=== PATIENT | male | born 1980 | race Caucasian/White ===

== ENCOUNTER 2024-07-15 08:01 | Emergency (ER) | payer OTHER, SELFPAY ==
[2024-07-15 08:10] VITALS: BP 148/90; PULSE 82; RESP 16; TEMP 36.7; O2SAT 98; BMI 29.5
--- NOTE | 2024-07-15 08:23 | ED.GENADULT ---
HPI - General Adult General Chief complaint: Wound/Laceration Stated complaint: l arm lac Time Seen by Provider: 07/15/24 08:23 Source: patient Mode of arrival: ambulatory Limitations: no limitations History of Present Illness ED Provider: Halima Perry PA-C HPI narrative: Patient is a 43 year old assigned male at with no reported medical history presenting to the emergency department today with a left forearm laceration. Patient states that he was at work, at [employer], when he cut a box and caught his left forearm. Patient states that he does not know when his last tetanus shot was. Patient denies any dizziness, lightheadedness, abdominal pain, nausea, vomiting, fever, chills, blurry vision, double vision, loss of vision, chest pain, difficulty breathing, shortness of breath, back pain, night sweats, pain with urination, increased urinary frequency, increased urinary urgency, blood in his urine or stool, syncope or a near syncopal episode, bowel incontinence, bladder incontinence, or any other complaints at this time. Location: left and upper extremity Relieving factors: none Exacerbating factors: none Associated symptoms: denies other symptoms Treatments prior to arrival: none Related Data Previous Rx's ?Medication ?Instructions ?Recorded cephalexin 500 mg capsule 500 mg PO Q6H 7 days #28 caps 07/15/24 Allergies Allergy/AdvReac Type Severity Reaction Status Date / Time No Known Allergies Allergy Verified 07/15/24 08:13 Review of Systems Constitutional: Constitutional: Reports no additional constitutional complaints, Denies chills, Denies fever(s) and Denies night sweats Eyes: Eyes: Reports no additional eye complaints, Denies blurry vision, Denies change in vision, Denies diplopia, Denies eye discharge, Denies loss of vision and Denies eye pain ENT: Denies dizziness Cardiovascular: Cardiovascular: Reports no additional cardiovascular complaints, Denies chest pain, Denies lightheadedness, Denies Loss of Consciousness and Denies dyspnea Respiratory: Respiratory: Reports no additional respiratory complaints and Denies dyspnea Gastrointestinal: Gastrointestinal: Reports no additional gastrointestinal complaints, Denies abdominal pain, Denies melena, Denies hematochezia, Denies change in bowel habits and Denies change in stool character Genitourinary: Genitourinary: Reports no additional male genitourinary complaints, Denies hematuria, Denies oliguria, Denies difficulty urinating, Denies dysuria, Denies urinary frequency, Denies urinary hesitancy, Denies urinary incontinence and Denies urinary urgency Musculoskeletal: Musculoskeletal: Reports no additional musculoskeletal complaints, Denies numbness and Denies tingling Comments: left forearm laceration Neurologic: Denies dizziness, Denies loss of vision, Denies numbness and Denies tingling Psychiatric: Psychiatric: Reports no additional psychiatric complaints Endocrine: Endocrine: Reports no additional endocrine complaints Hematologic/Lymphatic: Hematologic/Lymphatic: Reports no additional hematologic/lymphatic complaints Allergic/Immunologic: Allergic/Immunologic: Reports no additional allergic/immunologic complaints PMFSH Past Medical History Attestation statement: The following information was validated with the patient. Source: old records reviewed and nursing notes reviewed Physical Exam ED Vital Signs: Vital Signs - 24 hr 07/15/24 08:10 Temperature 98.0 F Pulse Rate 82 Respiratory Rate 16 Blood Pressure 148/90 H Pulse Oximetry 98 Oxygen Delivery Method Room Air BMI result Body Mass Index 29.5 Const General: cooperative, no acute distress, alert and awake Nutritional Appearance: well nourished Orientation/consciousness: patient oriented x3 Limitations: no limitations HENMT Head: Yes normal to inspection and Yes atraumatic Ears: hearing grossly normal bilaterally and external ears normal General nose exam: Normal external nose present, no nasal discharge noted and no epistaxis Face and sinus: Yes normal facial exam, No abrasion and No laceration Mouth: Normal oral and palatal mucosa present, no drooling and no muffled voice Eyes General: appearance normal, both eyes and all related structures Periorbital: periorbital findings normal Eyelids: Yes eyelids normal Conjunctivae: conjunctivae normal Pupils: Equal, round and reactive pupils present EOM: EOMs intact bilaterally Neck Neck: Yes normal visual inspection, Yes full ROM and Yes no lymphadenopathy Chest Chest palpation & inspection: normal inspection of the chest Resp Effort & Inspection: normal respiratory effort and able to speak in complete sentences GI Inspection: Yes normal to inspection Neuro General: patient oriented x3 and moves all extremities Cranial nerves: Yes Equal, round and reactive pupils present Cognition (Neuro): normal cognition Extrem Other: 5cm laceration present to the left volar forearm - no active bleeding General: Yes full ROM and Yes capillary refill normal Psych Appearance: grossly normal Mental Status: mental status grossly normal Affect: normal affect Attitude: cooperative Thought process: Normal thought process present Thought content: Normal thought content present Insight: Good insight present (Psych) Procedures Laceration left volar forearm: Site: upper extremity Side (If applicable): left Size (cm): 5 Description: linear Depth: simple, single layer Local Anesthetic: lidocaine 1% Amount of anesthesia used (mL): 10 Pre-repair: wound explored, irrigated extensively and deep structures intact Skin layer closed with: nylon Size (cm): 4-0 Number of sutures: 7 Technique: simple, interrupted Medical Decision Making Medical Decision Making MDM Narrative: Patient is a 43 year old assigned female at with no reported medical history presenting to the emergency department today with a left forearm laceration. Patient's physical exam was as noted in the physical exam portion of this note. I explained my physical exam findings to the patient. I answered all questions asked by the patient. Patient's laceration was repaired, per procedure note, without incident. I stressed the importance of the patient taking his medication as directed (either prescribed or as the over the counter packaging recommends). I stressed the importance of the patient following up with his primary care provider. I stressed the importance of the patient returning to the emergency department immediately if his symptoms were to worsen or if he were to develop any dizziness, shortness of breath, difficulty breathing, chest pain, blurry vision, loss of vision, nausea, vomiting, abdominal pain, fever, chills, back pain, or any other complaints. Patient verbalized agreement and understanding with this treatment plan and discharge. 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 Have your sutures (7) removed in 7-10 days. Take your antibiotic as prescribed. Follow up with your primary care provider and given this was a work place injury, you should follow up with [facility]. Return to the emergency department immediately if your symptoms worsen or if you develop any dizziness, shortness of breath, difficulty breathing, chest pain, blurry vision, loss of vision, nausea, vomiting, abdominal pain, fever, chills, back pain, or any other complaints. Prescriptions: New cephalexin 500 mg capsule 500 mg PO Q6H 7 Days Qty: 28 0RF [place] [facility] [place]] (Call to establish and follow up with a primary care provider. If you already have a primary care provider, please follow up with them.) [facility] [Provider Group] (Call to establish and follow up with a primary care provider. If you already have a primary care provider, please follow up with them.) [facility] [Provider Group] (Call to establish and follow up with a primary care provider. If you already have a primary care provider, please follow up with them.) [facility] [Provider Group] (Given this was a work injury, you should follow up with [facility]. ) Stand Alone Forms: Work/School Release
[2024-07-15] MEDS: Diphth,Pertus(ACell),Tet Adult 0.5 ML SYRINGE IM (09:10)
--- NOTE | 2024-07-15 09:13 | PC.NURSE ---
pt medicated per order
--- NOTE | 2024-07-15 09:46 | PC.NURSE ---
lt arm wrapped with nonstick and arian. pt instructed to keep area dry.
[2024-07-15 09:47] VITALS: BP 141/86; PULSE 88; RESP 16; TEMP 36.7; O2SAT 99
== END 2024-07-15 09:48 | disposition home or self-care (01) ==
LOC: HO.ED 09:14
PROVIDERS: Emergency Provider Emergency Medicine
DX: S51.812A Laceration without foreign body of left forearm, initial encounter (principal); M79.632 Pain in left forearm; W26.0XXA Contact with knife, initial encounter; Y93.89 Activity, other specified; Y92.89 Other specified places as the place of occurrence of the external cause; Y99.0 Civilian activity done for income or pay
CPT/HCPCS: 12032; 90471; 90715; 99282; 99284

== ENCOUNTER 2024-07-23 08:45 | Outpatient (AMB) | payer OTHER, SELFPAY ==
--- NOTE | 2024-07-23 09:39 | AM.OFFWIN_ITS ---
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 they were initially placed last saturday. 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 He suffered a left forearm lac. on 07/15 when cutting a box while at work. [place] [facility] and he was started on Cephalexin 7 days, which he is completing today. He states one of the sutures fell out. He reports site has felt fine, without any redness, tenderness, swelling, drainage. TDAP was given in the ED. [facility] Social History Patient Tobacco Use Status: Never used Tobacco Review of Systems Const All systems reviewed & are unremarkable except as noted in HPI and below Physical Exam Const General: cooperative, healthy appearing and no acute distress Nutritional Appearance: average body habitus Resp Effort & Inspection: normal respiratory effort Skin Other: Laceration on left forearm well-approximated with 6 sutures intact. No surrounding redness, warmth, tenderness. No drainage. Extrem General: Yes capillary refill normal and Yes no clubbing, cyanosis or edema Psych Appearance: grossly normal Mental Status: mental status grossly normal Speech and movement: Normal speech and movement present Assessment & Plan Assessment & Plan (1) Visit for suture removal: Code(s): Z48.02 - Encounter for removal of sutures Plan: 6 sutures easily removed from left forearm. Bacitracin ointment applied. Red flag warnings to return to the clinic were reviewed with the patient. Up to date on TDAP. Completing Cephalexin course today. All questions were answered and patient agrees to plan. Coding Level of Care Code Est Pt Level 3 (82475) Diagnoses Visit for suture removal Z48.02
[2024-07-23 09:41] VITALS: BP 130/80; PULSE 68; O2SAT 98; BMI 29.8
== END 2024-07-23 10:01 | disposition home or self-care (01) ==
PROVIDERS: Visit Provider Nurse Practitioner Family
DX: S51.812A Laceration without foreign body of left forearm, initial encounter (principal); Z48.02 Encounter for removal of sutures; Z04.2 Encounter for examination and observation following work accident

== ENCOUNTER → 2024-07-23 08:45 | Outpatient (BNVA) | payer OTHER, SELFPAY | DX: S51.812D Laceration without foreign body of left forearm, subsequent encounter (principal); X58.XXXD Exposure to other specified factors, subsequent encounter | CPT/HCPCS: 99212 ==

== ENCOUNTER 2025-01-07 08:50 | Outpatient (AMB) | payer OTHER, SELFPAY ==
[2025-01-07 08:57] VITALS: BP 130/84; PULSE 92; O2SAT 98; BMI 28.4
--- NOTE | 2025-01-07 08:57 | MHC.PC.OV ---
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 Carpenter at [facility] Last visit: 2020 Last PE: same Specialist: no OBGYN:n/a Past medical history: Anxiety Medications: Family HX: father DM passed, mother lymphoma passed Problem: Reports he stopped taking the zoloft around 2020 reports that he is still a little anxious but it is mostly work related Reports that he is a over thinker reports that he came of he zoloft because he felt like he lost the abillity to care about things that he should care about while on this medication reports that he was on celexa when he was younger and had a lot of anxiety reports that he does feel like he did not get over his parents passing discussed with patient that he should probably speak to a therapist Reports that his lost both her patient as well, and she has been helping him cope with this Reports that he has a daughter and his - but not much close family Reports that on November 21 he had a ankle sprain and went to the urgent care and they noticed that his blood pressure was elevated His blood pressure is normal in office-could have been pain related Reports that due to the reported elevated blood pressure he had been making a lot of life style changes He stopped drinking energy drinks, only have coffee once a day, and have been drinking mostly water eye exam: Not in a while- he will make appt dental exam:up to date flu: decline covid: x2-no booster PFSH Medical History Anxiety Family History (Updated 01/07/25 @ 14:43 by ASHA Mccray) Father Diabetes Mother Lymphoma Social History Housing: Condominium Patient Tobacco Use Status: Never used Tobacco e-Cigarette/Vaping Use: Never Used service: No Current occupational status: employed Current occupational exposures/hazards: No Cognitive needs: No Hearing needs: No Vision needs: Yes Questionnaire PHQ-9 Over the last 2 weeks, how often have you been bothered by any of the following problems? 1. Little interest or pleasure in doing things: several days 2. Feeling down, depressed, or hopeless: several days 3. Trouble falling or staying asleep, or sleeping too much: several days 4. Feeling tired or having little energy: several days 5. Poor appetite or overeating: not at all 6. Feeling bad about yourself - or that you are a failure or have let yourself or your family down: several days 7. Trouble concentrating on things, such as reading the newspaper or watching television: not at all 8. Moving or speaking so slowly that other people could have noticed. Or the opposite - being so fidgety or restless that you have been moving around a lot more than usual: not at all 9. Thoughts that you would be better off or of hurting yourself in some way: not at all Total score: 5 Depression Screening Interpretation: Positive Depression Screening Done: Yes 48997 - PHQ-9 Billing: Yes Source: Developed by Drs. Rojas Friedman, Shawna Lofton, Harry Shaw and colleagues, with an educational amauri from [employer]. Thrive Questionnaire Date Thrive assessed: 01/07/25 I am a: Patient What is your living situation today?: I have a steady place to live Within the past 12 months, did the food you bought not last and you didn't have the money to get more?: Never true Within the past 12 months, did you worry whether your food would run out before you got money to buy more?: Never true Do you have trouble paying for medicines?: No Do you have trouble getting transportation to medical appointments?: No Do you have trouble paying your heating and electricity bill?: No Do you have trouble taking care of your child, family member or friend?: No Do you have trouble with day-to-day activities such as bathing, preparing meals, shopping, managing finances, etc.?: No Are you currently unemployed and looking for a job?: No Are you interested in more education?: No Please select the resources that you would like help with: None Currently or been in a relationship where the following occur: No concerns reported THRIVE Score: 0 AUDIT C Alcohol Use Questionnaire (AUDIT-C) 1. How often do you have a drink containing alcohol?: Never 3. How often do you have six or more drinks on one occasion?: Never Total Score: 0 JANINA-7 AMB Questionnaire JANINA-7 Date JANINA - 7 assessed: 01/07/25 Feeling nervous, anxious, or on edge: 3 = Nearly every day Not being able to stop or control worryin = Several days Worrying too much about different things: 1 = Several days Trouble relaxin = Several days Being so restless that it is hard to sit still: 0 = Not at all Becoming easily annoyed or irritable: 1 = Several days Feeling afraid as if something awful might happen: 0 = Not at all Total JANINA-7 score (0-4 normal; 5-9 mild; 10-14 moderate; 15-21 severe): 7 Source: Developed by Drs. Rojas Friedman, Shawna Lofton, Harry Shaw and colleagues, with an educational amauri from [employer]. JANINA-7 Assessment Billing JANINA-7 Assessment Tool: JANINA-7 Assessment 50837 Review of Systems Const Denies headache(s) Eyes Denies loss of vision ENT Denies vertigo, Denies dizziness, Denies headache(s) and Denies sore throat Card Denies chest pain, Denies leg edema and Denies lightheadedness Resp Denies cough, Denies hemoptysis and Denies wheezing GI Denies abdominal pain, Denies melena, Denies constipation, Denies diarrhea and Denies vomiting Denies dysuria, Denies urinary frequency and Denies urinary urgency Musc Denies arthralgias, Denies joint swelling, Denies numbness and Denies tingling Neuro Denies Abnormal speech present, Denies behavioral changes, Denies vertigo, Denies dizziness, Denies headache(s), Denies loss of vision, Denies memory loss, Denies numbness and Denies tingling Psych Reports anxiety, Denies behavioral changes, Denies depression, Denies memory loss and Denies panic attacks Kenn/Lymph Denies easy bleeding and Denies easy bruising Aller/Immun Denies wheezing Physical exam (Primary Care) Vital Signs: Last Vital Signs Pulse 92 01/07/25 08:57 BP 130/84 01/07/25 08:57 Pulse Ox 98 01/07/25 08:57 Oxygen Delivery Method Room Air 01/07/25 08:57 BMI result Body Mass Index 28.4 Tobacco/Smoking Status: Tobacco use Status Tobacco use date assessed 01/07/25 01/07/25 08:59 Patient Tobacco Use Status Never used Tobacco 01/07/25 08:59 e-Cigarette/Vaping Use Never Used 01/07/25 08:59 PHQ-9: PHQ-9 Score PHQ-9: Total score 5 01/07/25 14:48 Depression Screening Interpretation: Positive Thrive Assessment: Date of Thrive Assessment Date Thrive assessed 01/07/25 01/07/25 08:59 Currently or been in a relationship where the following occur: No concerns reported Const General: healthy appearing, no acute distress, alert and awake Nutritional Appearance: well nourished Orientation/consciousness: oriented to person, oriented to place and oriented to time HENMT Ears: TM's normal bilaterally General nose exam: Normal nasal mucous membranes and turbinates present Eyes Conjunctivae: conjunctivae normal Sclerae: sclerae normal Pupils: Equal, round and reactive pupils present Neck Neck: Yes no lymphadenopathy and Yes no JVD Thyroid: Thyroid normal Carotids: no bruits Resp Effort & Inspection: normal respiratory effort and not tachypneic Auscultation: no crackles, no rales, no rhonchi and no wheezes Cardio Rate: regular rate Rhythm: regular rhythm Heart sounds: no murmurs and normal S1 and S2 GI Palpation (GI): Soft to palpation, nontender, no hepatomegaly and no splenomegaly Auscultation: normal bowel sounds Skin General skin exam: no rashes or lesions noted and dry skin Neuro General: oriented to person, oriented to place and oriented to time Cranial nerves: Yes Equal, round and reactive pupils present Speech: No Abnormal speech present Gait exam (Neuro): Normal gait present Motor exam (neuro): no tremor noted Extrem Right upper extremity: full ROM Left upper extremity: full ROM Right lower extremity: full ROM; no edema Left lower extremity: full ROM; no edema Psych Mental Status: mental status grossly normal Speech and movement: Normal speech and movement present Affect: normal affect Attitude: cooperative Thought process: Normal thought process present Coding Level of Care Code New Pt Prev Care 40-64y(87305) Diagnoses Encounter for medical examination to establish care Z00. Anxiety F41.9 Additional Codes JANINA-7 Assessment Billing - JANINA-7 Assessment Tool: JANINA-7 Assessment 85870 ([id number]) PHQ-9 - 87629 - PHQ-9 Billing: Yes ([id number]) Time Spent (min) 39 Assessment & Plan Assessment & Plan (1) Encounter for medical examination to establish care: Code(s): Z00. - Encounter for general adult medical examination without abnormal findings Category: Medical Plan: The patient is establishing care, a physical examination was done. Preventive guidelines reviewed with patient. Labs were ordered for the patient to complete as soon as possible (2) Anxiety: Code(s): F41.9 - Anxiety disorder, unspecified Category: Medical Plan: The reports a history of anxiety and that he titrated himself off zoloft because it made him cared less about things that he should care about. Reports that when he was younger he was on Celexa; he does not remember the reason this medication was stopped or if he just stopped taking the medication on his own. Plan Will send patient a mail if labs are normal or call if abnormal Orders: Orders Comprehensive [place]. Panel Fast 01/07/25 Z. - Encounter for general adult medical examination without abnormal findings Vitamin D 25-OH Total 01/07/25 Z. - Encounter for general adult medical examination without abnormal findings UA CC w/rflx Micro + Cult 01/07/25 Z. - Encounter for general adult medical examination without abnormal findings Complete Blood Count Auto Diff 01/07/25 Z. - Encounter for general adult medical examination without abnormal findings Lipid Panel 01/07/25 Z. - Encounter for general adult medical examination without abnormal findings TSH reflex Free T4 01/07/25 Z. - Encounter for general adult medical examination without abnormal findings Glucose Fasting 01/07/25 Z00.00 - Encounter for general adult medical examination without abnormal findings
--- OUTSIDE RECORDS SUMMARY | 2025-01-07 09:46 | XMS_ITS | Data Portability ---
Author Organization [facility] - [facility], [address] Address [address] [place] [address] Assessment No assessment recorded. Plan of Treatment Reminders Order Date Submit Date Provider Last Modified By Organization Details Last Modified Time Details Appointments None recorded. Lab None recorded. Referral None recorded. Procedures None recorded. Surgeries None recorded. Imaging None recorded. Medication Orders Polytrim 10,000 unit-1 mg/mL eye drops 2022 023 [facility] #[id number], [address] [place], [address], 13:02:03 Patient TargetsNo targets recorded. Patient Instructions Encounter Date Encounter Id Patient Instructions Last Modified By Organization Details Last Modified Time 03/08/2023 [id number] lola: care instructions [email or web address] Not available 03/08/2023 13:02:01 Reason for Referral None Reported. Problems No Known Problems Medical Equipment None Reported. Allergies No known drug allergies Medications Name Sig Start Date Stop Date Status Note LastModified by Organization Details LastModified Time Polytrim 10,000 unit-1 mg/mL eye drops INSTILL 1 DROP INTO AFFECTED EYE(S) BY OPHTHALMIC ROUTE EVERY 6 HOURS 023 active Not Available Not Available Not Avai lable Vitals Date Recorded Body height Body mass index (BMI) Body weight Pain severity - 0-10 verbal numeric rating [Score] - Reported Respiratory rate Oxygen saturation Oxygen saturation in Arterial blood by Pulse oximetry Heart rate Body temperature Systolic blood pressure Diastolic blood pressure Provider Name and Address Organization Details Last Updated DateTime 3 172.72 cm 30.7 kg/m2 19696.6 6 g 5 18 /min 98 % 98 % 97 /min 98.7 [degF] 134 mm[Hg] 90 mm[Hg] Camilla De Anda PA - [facility] 12:50:11 Social History Question Answer Notes LastModified by Organizat ion Details LastModified Time Tobacco Smoking Status Never Smoker Camilla De Anda phill PA - [facility] 03/08/2023 12:48:14 What Is Your Level Of Alcohol Consumption? None Information not available 03/08/2023 Do You Use Any Illicit Or Recreational Drugs? No Information not available 03/08/2023 Have You Recently Traveled Abroad? No Information not available 03/08/2023 Do You Or Have You Ever Used Any Other Forms Of Tobacco Or Nicotine? No Information not available 03/08/2023 Sex: Unknown Functional Status None recorded. Mental Status None recorded. Family History Relationship Description Onset Age of this Age Resolved Age Notes LastModified by Organization Details LastModified Time Father No current problems or disability [email or web address] Not available 03/08 12:48:07 Mother No current problems or disability [email or web address] Not available 03/08 12:48:07 Medical History No medical history recorded. Immunizations Vaccine Type Date Status Note Provider Nam e and Address Organization Details Recorded Time COVID-19, mRNA, LNP-S, PF, 30 mcg/0.3 mL dose 06/05/2021 completed Camilla Adilson pollock PA - [facility] 03/08/2023 12:47:35 COVID-19, mRNA, LNP-S, PF, 30 mcg/0.3 mL dose 06/26/2021 completed Camilla pollock PA - [facility] 03/08/2023 12:47:35 Past Encounters Encounter ID Performer Location Encounter Start Date Encounter Closed Date Diagnosis/Indication Diagnosis SNOMED-CT Code Diagnosis ICD10 Code Diagnosis Note [id number] [facility] [address] [address] [place] [address] 03/08/2023 10:15:04 03/08/2023 13:05:25 Acute conjunctivitis of left eye [id number] 63851 H10.32 Use prescribed antibiotic eye drops or ointment as directed to treat the infection. Apply a warm compress (towel soaked in warm water) to the affected eye 3 to 4 times a day. Do this just before applying medicine to the eye. Use a warm, wet cloth to wipe away crusting of the eyelids in the morning. This is caused by mucus drainage during the night. You may also use saline irrigating solution or artificial tears to rinse away mucus in the eye. Do not put a patch over the eye. Wash your hands before and after touching the infected eye. This is to prevent spreading the infection to the other eye, and to other people. Don't share your towels or washcloths with others. You may use acetaminop hen or ibuprofen to control pain, unless another medicine was prescribed . Talk with your healthcare provider before using these medicines if you have chronic liver or kidney disease. Also talk with your provider if you have ever had a stomach ulcer or digestive bleeding. Don't wear contact lenses until your eyes have healed and all symptoms are gone. Follow-up careFollow up with your healthcare provider, or as advised. When to seek medical adviceCall your healthcare provider right away if any of these occur:Wors ening visionIncr easing pain in the eyeIncreas ing swelling or redness of the eyelidRedn ess spreading around the eye Health Concerns Section Related Observation LastModified by Organization Detai ls LastModified Time None Recorded Concern Status LastModified by Organization Details LastModified Time None Recorded Advance Directives Directive None Recorded Payers Encounter Date Sequence Insurance Name Policy Number Policy Henson Covered Member ID Henson Member ID Guarantor Name 03/08/2023 1 [facility] [id number] Ebony Canseco [id number] 1 Ebony Canseco Notes Date Note Type Note Provider Name and Address Organization Details Recorded Time 03/08/2023 text/html Eye problemsRepo rted bypatient.Location:[facility] Eye Symptoms:redness;disc harge Onset/Timindays Modifying Factors:nothing gives relief Roro Peter MD [address] [place], [address], [place] - [facility] 03/08/2023 13:17:59
== END 2025-01-07 10:05 | disposition home or self-care (01) ==
LOC: HO.HMCH 08:51
DX: Z00.00 Encounter for general adult medical examination without abnormal findings (principal); F41.9 Anxiety disorder, unspecified

== ENCOUNTER → 2025-01-07 08:50 | Outpatient (BNVA) | payer OTHER, SELFPAY | DX: Z00.00 Encounter for general adult medical examination without abnormal findings (principal); F41.9 Anxiety disorder, unspecified | CPT/HCPCS: 96127 ==